=== PATIENT | female | born 1975 | race Hispanic/Latino ===

== ENCOUNTER 2016-08-30 08:49 | Day surgery (SDC) | payer OTHER ==
[~2016-08-30] VITALS: Ht 160 cm; Wt 70.0 kg
[~2016-08-30 08:49] MED LIST: 0.9% Sodium Chloride 1,000 ML IV SCH; ALBU90AE IH; FLUC150T3 PO; LORA10CA PO; MULT-666 PO; OMEP20CA11 PO; Sodium Chloride LOK Flush 10 mL Syringe IV PRN; fentaNYL-PF 50 mCg/mL 2 mL Inj IVPUSH PRN
[2016-08-30 09:15] VITALS: BP 129/83; PULSE 68; RESP 16; O2SAT 97
[2016-08-30 10:24] VITALS: BP 103/63; PULSE 63; RESP 14; O2SAT 96
[2016-08-30 10:34] VITALS: BP 106/59; PULSE 70; RESP 16; O2SAT 98
[2016-08-30 10:44] VITALS: BP 96/59; PULSE 57; RESP 16; O2SAT 96
[2016-08-30 10:48] VITALS: BP 111/67; PULSE 63; RESP 16; O2SAT 98
--- NOTE | 2016-08-30 11:04 | ENDO ---
[address] [address] ENDOSCOPY PROCEDURE PATIENT: JEREMIAH KOROMA : 1975 MR#: [id number] ADMIT: 08/30/2016 JOB ID: [id number] PROCEDURE: Esophagogastroduodenoscopy. INDICATION: Gastroesophageal reflux. ASA CLASSIFICATION: 1. MALLAMPATI SCORE: 2. MEDICATIONS: Versed 6 mg, fentanyl 125 mcg. INSTRUMENT USED: GIF-H180-J. PROCEDURE DETAILS: After informed consent was obtained, the patient was brought into the GI suite, where she was placed on oxygen via nasal cannula and monitored with continuous pulse oximeter, telemetry, and blood pressure monitoring. A time-out was performed. Then, she was placed in a left lateral decubitus position and medications were administered for sedation. A bite block was placed. The standard EGD scope was then inserted through the bite block and advanced under direct visualization to the second portion of duodenum without difficulty. FINDINGS: 1. Normal-appearing duodenal bulb, first and second portion. Multiple random biopsies were obtained. 2. Normal-appearing pylorus. In the antrum and body of stomach, there was erythema noted suggestive of gastritis. Multiple random biopsies were obtained. 3. Retroflexed views in the gastric body revealed a normal-appearing cardia and fundus. The fundus of the stomach had erythema that was appreciated in the gastric body. 4. The GE junction was at 35 cm. It was slightly irregular. A single biopsy was obtained. 5. Remainder of the esophagus appeared otherwise unremarkable. IMPRESSION: 1. Gastritis. 2. Slightly irregular gastroesophageal junction. RECOMMENDATIONS: 1. Await biopsy results. 2. Continue PPI daily. 3. Proceed to colonoscopy.
--- NOTE | 2016-08-30 11:07 | ENDO ---
[address] [address] ENDOSCOPY PROCEDURE PATIENT: JEREMIAH KOROMA : 1975 MR#: [id number] ADMIT: 08/30/2016 JOB ID: [id number] PROCEDURE PERFORMED: Colonoscopy. INDICATION: Change in bowel habits. Please see above for ASA classification, Mallampati score, and medications. INSTRUMENT USED: PCF-H190-AL. PREPARATION QUALITY: Good. PROCEDURE DETAILS: After completion of the EGD exam, the patient was turned and a digital rectal exam was performed, which was unremarkable. The colonoscope was then inserted into the rectum and advanced under direct visualization to the terminal ileum which was identified by the presence of the ileocecal valve and villous-appearing mucosa of the terminal ileum. Once the terminal ileum was reached, the colonoscope was withdrawn back into the rectum as the mucosa and lumen were examined. In the rectum, retroflexion was performed. Following retroflexion, remaining air in the rectum was suctioned, and procedure was completed. FINDINGS: 1. Normal-appearing terminal ileum. 2. The mucosa in the cecum and proximal ascending colon had a nodular appearance. Multiple random biopsies were obtained. 3. A diminutive polyp was seen in the sigmoid colon that was removed with cold biopsy forceps. 4. In the rectum, the mucosa had an erythematous appearance suggestive of proctitis. Multiple random biopsies were obtained. IMPRESSION: 1. Normal-appearing terminal ileum. 2. Nodular mucosa in the cecum and proximal ascending colon. 3. Sigmoid polyp. 4. Erythema in the rectum suggestive of proctitis. RECOMMENDATIONS: 1. Await biopsy results. 2. Follow up in GI clinic. COMPLICATIONS: None. ESTIMATED BLOOD LOSS: Less than 5 mL.
--- NOTE | 2016-09-01 11:28 | PATH ---
SURGICAL PATHOLOGY Attending Physician:Yuridia Ibrahim CASE STATUS: Signed Out PATIENT NAME: JEREMIAH KOROMA PID: [id number] : 1975 DATE COLLECTED:08/30/2016 15:50 SPECIMEN: 1: Duodenum, Biopsy 2: Gastric, Biopsy 3: Esophagus, Biopsy 4: Colon, Biopsy 5: Colon, Biopsy 6: Colon, Biopsy 7: Rectum, Biopsy CLINICAL HISTORY: 1. DUODENAL BXS 2. GASTRIC BXS 3. DISTAL ESOPHAGUS BX 4. CECAL BXS 5. ASCENDING COLON BXS 6. SIGMOID COLON POLYP 7. RECTAL BXS FINAL DIAGNOSIS: 1.DUODENUM, BIOPSY: NO DIAGNOSTIC ABNORMALITY. Negative for intraepithelial lymphocytosis, villous blunting, or other features of celiac sprue. Negative for Giardia organisms, dysplasia and malignancy. 2.GASTRIC BIOPSY: GASTRIC CORPUS WITH CHRONIC ACTIVE GASTRITIS. POSITIVE FOR HELICOBACTER ORGANISMS. Negative for intestinal metaplasia. No evidence of malignancy or dysplasia. 3.DISTAL ESOPHAGUS, BIOPSY: ESOPHAGEAL SQUAMOUS EPITHELIUM AND GASTRIC GLANDULAR MUCOSA WITH CHRONIC ACTIVE INFLAMMATION. Negative for intestinal metaplasia. No evidence of dysplasia or malignancy. 4.CECUM, BIOPSY: MILD MELANOSIS COLI. No significant inflammation identified. No evidence of malignancy or dysplasia. 5.ASCENDING COLON BIOPSY: MILD MELANOSIS COLI. No significant inflammation identified. No evidence of malignancy or dysplasia. 6.SIGMOID COLON POLYP: TUBULAR ADENOMA. 7.RECTAL BIOPSIES: NORMAL COLONIC MUCOSA. No significant inflammation identified. No evidence of dysplasia or malignancy. ICD10 B96.81 D12.6 GROSS DESCRIPTION: The specimen is received in seven formalin filled containers labeled with the patient's name. 1). The specimen is sublabeled "duodenum" and consists of 4 portions of tissue which aggregate to 0.3 x 0.3 x 0.2 CM. The specimen is entirely submitted in cassettes 1A. 2). The specimen is sublabeled "gastric" and consists of 3 portions of tissue which aggregate to 0.5 x 0.3 x 0.2 CM. The specimen is entirely submitted in cassette 2A. 3). The specimen is sublabeled "distal esophagus" and consists of a 0.2 x 0.2 x 0.2 CM portion of tissue which is entirely submitted in cassettes 3A. 4). The specimen is sublabeled "cecal" and consists of 3 portions of tissue which aggregate to 0.4 x 0.3 x 0.2 CM. The specimen is entirely submitted in cassette 4A. 5). The specimen is sublabeled "ascending colon" and consists of 4 portions of tissue which aggregate to 0.3 x 0.3 x 0.2 CM. The specimen is entirely submitted in cassette 5A. 6). The specimen is sublabeled "sigmoid colon polyp" and consists of a 0.4 x 0.4 x 0.2 CM portion of tissue. The specimen is entirely submitted in cassettes 6A. 7). The specimen is sublabeled "rectal" and consists of 3 portions of tissue which aggregate to 0.4 x 0.3 x 0.2 CM. The specimen is entirely submitted in cassette 7A. 08/30/2016 DAC MICRO DESCRIPTION: 2. The lamina propria of the gastric antrum is expanded by numerous acute and chronic inflammatory cells. An immunostain for Helicobacter organisms is done because of the acute inflammation and is positive. This test was developed and its performance characteristics determined by [facility]. It has not been cleared or approved by the [place]. [place]. Food and Drug Administration. The FDA has determined that such clearance or approval is not necessary. This test is used for clinical purposes. It should not be regarded as investigational or for research. ICD-9 CODES: CPT CODES: 1: 38709 2: 24236, 83249 3: 45460 4: 35828 5: 15687 6: 89095 7: 39558 Electronically Signed Out Surjit Doran MD [facility] [address], [place] [address] Technical component performed at [facility], [facility] [address], [place], [address]
== END 2016-08-30 23:59 | disposition home or self-care (01) ==
LOC: END 08:49
PROVIDERS: ATTEND Internal Medicine Gastroenterology
DX: D12.5 Benign neoplasm of sigmoid colon (principal); K29.50 Unspecified chronic gastritis without bleeding; B96.81 Helicobacter pylori [H. pylori] as the cause of diseases classified elsewhere; K63.89 Other specified diseases of intestine; R19.4 Change in bowel habit; K21.9 Gastro-esophageal reflux disease without esophagitis; R10.31 Right lower quadrant pain
CPT/HCPCS: 43239; 45380; 99153; G0500; J7030